=== PATIENT | female | born 1960 | race Caucasian/White ===

== ENCOUNTER → 2018-05-29 | Outpatient (REF) | payer OTHER ==
[2018-06-03 08:06] LABS: HPV LOW VOL RFLX Negative (Negative)
== END ==
LOC: M LAB REF 13:14
DX: Z01.419 Encounter for gynecological examination (general) (routine) without abnormal findings (principal)

== ENCOUNTER → 2021-01-23 | Outpatient (CLI) | payer OTHER ==
[~2021-01-23] MED LIST: ATOR1TAB19 PO; COUM1TAB18; LEVO50TA45 PO; MULTTAB12 PO; OMEP40CA4 PO; PERC5TAB8; PROT1TAB2
--- NOTE | 2021-01-23 16:56 | REPMRS ---
Patient History The patient states she has not had a clinical breast exam in over a year. Patient is postmenopausal. Family history of colorectal cancer at age 65 in maternal aunt. Patient states no breast complaints today. Patient has signed MRS History Sheet. Digital Woman Screen Mammo: January 23, 2021 - Exam #: [id number] Bilateral CC and MLO view(s) were taken. Technologist: Pretty Mustafa, Technologist Prior study comparison: June 16, 2018, bilateral digital mammo screening bilat, performed at [facility]. February 05, 2015, bilateral digital mammo screening bilat, performed at [facility]. December 19, 2012, bilateral digital mammo screening bilat, performed at [facility]. FINDINGS: There are scattered fibroglandular densities. The Volpara volumetric breast density category is:B. There has been no change in the appearance of the mammogram from the prior studies. There is a mild amount of scattered fibroglandular density which is fairly symmetric. There is no interval development of dominant mass, architectural distortion, or grouped microcalcification suggestive of malignancy. 3-D tomosynthesis shows no additional findings. Assessment: BI-RADS/ACR category 1 mammogram. Negative Mammogram. Recommendation Routine screening mammogram of both breasts in 1 year (for women over age 40). This patient's [facility] Lifetime Breast Cancer Risk is estimated at 7.0 %. This mammogram was interpreted with the aid of an FDA-approved computer-aided dectection system. Electronically Signed By: Panfilo Pearson MD 01/23/21 [id number]
--- NOTE | 2021-01-26 14:38 | DEXAMM ---
INDICATION: DISORDER OF BONE. COMPARISON: Comparison studies August 30, 2008 and February 05, 2015.. TECHNIQUE: Bone density was measured using dual-energy x-ray absorptionmetry (DEXA). FINDINGS: AP SPINE L1-L4 BMD 1.131 g/cm2 Young Adult T-Score -0.5 Age Matched Z-Score 0.7. IMPRESSION: There is normal bone density of the spine. The density of the spine has decreased 1.1% since the initial exam on August 30, 2008. The density of the spine decreased 2.4% since most recent exam on February 05, 2015. FOLLOW-UP: Recommendation for the next bone density exam: 5 years. <Electronically signed by Panfilo Pearson > 01/26/21 [id number]
== END ==
LOC: M WHC 15:49
PROVIDERS: ATTEND Family Medicine
DX: Z12.31 Encounter for screening mammogram for malignant neoplasm of breast (principal); M81.0 Age-related osteoporosis without current pathological fracture

== ENCOUNTER → 2022-05-21 | Outpatient (CLI) | payer OTHER | LOC: M WHC 15:53 | PROVIDERS: ATTEND Registered Nurse | DX: Z12.31 Encounter for screening mammogram for malignant neoplasm of breast (principal) ==

== ENCOUNTER → 2023-05-31 | Outpatient (REF) | payer OTHER | LOC: M LAB REF 16:29 | PROVIDERS: ATTEND Nurse Practitioner Family | DX: Z12.4 Encounter for screening for malignant neoplasm of cervix (principal) | CPT/HCPCS: 87624; G0123 ==

== ENCOUNTER 2023-09-08 11:19 | Day surgery (SDC) | payer OTHER ==
[~2023-09-08] VITALS: Ht 154.9 cm; Wt 117.1 kg
[~2023-09-08 11:19] MED LIST changes: +LEVO88TA3 PO
[2023-09-08] MEDS: NS 1,000 ML IV ONE (11:50)
[2023-09-08 13:01] VITALS: TEMP 97.3
[2023-09-08 13:24] VITALS: BP 124/57; O2SAT 100
== END 2023-09-08 13:32 | disposition home or self-care (01) ==
LOC: M OPP 11:19
PROVIDERS: ATTEND Surgery
DX: Z12.11 Encounter for screening for malignant neoplasm of colon (principal); Z80.0 Family history of malignant neoplasm of digestive organs; K63.5 Polyp of colon; K57.30 Diverticulosis of large intestine without perforation or abscess without bleeding; Z79.02 Long term (current) use of antithrombotics/antiplatelets; Z79.890 Hormone replacement therapy; Z79.899 Other long term (current) drug therapy

== ENCOUNTER 2025-07-04 13:41 | Emergency (ER) | payer OTHER ==
[2025-07-04] MEDS ORDERED: HOME MED LIST COMPLETE! XX SCH (18:35)
[2025-07-04 19:28] VITALS: BP 134/72; TEMP 98; O2SAT 97
== END 2025-07-04 19:38 | disposition home or self-care (01) ==
LOC: M ED 16:37
DX: M23.92 Unspecified internal derangement of left knee (principal); W00.0XXA Fall on same level due to ice and snow, initial encounter; Y92.9 Unspecified place or not applicable; Y93.9 Activity, unspecified; Y99.0 Civilian activity done for income or pay; M85.862 Other specified disorders of bone density and structure, left lower leg; K21.9 Gastro-esophageal reflux disease without esophagitis; E78.5 Hyperlipidemia, unspecified; E03.9 Hypothyroidism, unspecified; Z79.899 Other long term (current) drug therapy